=== PATIENT | female | born 1975 | race African-American/Black ===

== ENCOUNTER 2017-01-18 10:21 | Outpatient (CLI) | payer OTHER ==
[~2017-01-18 10:21] MED LIST: ACYC200C14 PO; AMOX500C85 PO; INTEGRA PLUS PO; IRON18 M1 PO; NYST100048 BUC
== END 2017-01-18 20:01 | disposition home or self-care (01) ==
LOC: US 10:21
DX: N92.5 Other specified irregular menstruation (principal)